=== PATIENT | male | born 1950 | race Caucasian/White ===

== ENCOUNTER → 2016-09-26 | Outpatient (CLI) | payer MEDICARE ==
[~2016-09-26] MED LIST: REGADENOSON 0.4 MG/5 ML SYRINGE ONE
== END | disposition home or self-care (01) ==
LOC: CFH 07:50
PROVIDERS: ATTEND Nurse Practitioner Family
DX: I47.2 Ventricular tachycardia (principal)
CPT/HCPCS: 78452; 93017; A9502; J2785

== ENCOUNTER 2016-10-04 09:26 | Day surgery (SDC) | payer MEDICARE ==
[2016-10-03 10:25] VITALS: BP 126/89
[2016-10-03 11:04] LABS: ASPARTATE AMINO TRANSFERASE 17 U/L (15-37); BLOOD UREA NITROGEN 21 mg/dL (7-18)
[~2016-10-04] VITALS: Ht 182.9 cm; Wt 88.6 kg
[~2016-10-04 09:26] MED LIST changes: +AMIO200T42 PO; +ASPI-496 PO; +ATOR20TA9 PO; +CARV12.52 PO; +CARV25TA12 PO; +IBUP200C8 PO; +NEO/3.5O LEFTEYE; -REGADENOSON 0.4 MG/5 ML SYRINGE ONE; +SPIR25TA3 PO; +TRIA60LO10 TD; +UMEC1DIS INH
[2016-10-04] MEDS ORDERED: SODIUM CHLORIDE 0.9% 1,000 ML IV SCH (09:42)
[2016-10-04] MEDS ORDERED: CEFAZOLIN PMX 1GM/50ML 50 ML IVPB ONE (10:00)
[2016-10-04] MEDS ORDERED: MAGN100T6 PO (10:38)
[2016-10-04] MEDS ORDERED: LIDOCAINE 2%, 20ML ONE (11:35)
[2016-10-04] MEDS ORDERED: FENTANYL PF 100 MCG/2ML ONE (11:50)
[2016-10-04] MEDS ORDERED: CEFAZOLIN 1,000 MG ONE ×2 (12:05→15:48)
[2016-10-04] MEDS ORDERED: FENTANYL PF 100 MCG/2ML IV PRN (13:00)
[2016-10-04] MEDS ORDERED: ALBUTEROL SULFATE 2.5 MG/3 ML NPPB PRN (13:00)
[2016-10-04] MEDS ORDERED: MEPERIDINE/PF 25MG/0.5ML IVPush PRN (13:00)
[2016-10-04] MEDS ORDERED: LABETALOL 5MG/ML, 20ML IV PRN (13:00)
[2016-10-04] MEDS ORDERED: MIDAZOLAM 1 MG/ML, 2ML IV PRN (13:00)
[2016-10-04] MEDS ORDERED: PROMETHAZINE 25 MG/ML, 1ML IV PRN (13:00)
[2016-10-04] MEDS ORDERED: HYDROmorphone 1 MG/ML, 1ML IV PRN (13:00)
[2016-10-04] MEDS ORDERED: hydrALAzine 20 MG/ML, 1ML IV PRN (13:00)
[2016-10-04] MEDS ORDERED: ACETAMINOPHEN 325 MG TABLET PO PRN (13:00)
[2016-10-04] MEDS ORDERED: OXYcodone 5 MG/5 ML ORAL.SOL UDC PO PRN (13:00)
[2016-10-04] MEDS ORDERED: ONDANSETRON 2MG/ML, 2ML IVPush PRN (13:00)
[2016-10-04] MEDS ORDERED: CEPH-368 PO (15:33)
[2016-10-04] MEDS ORDERED: PHENYLEPHRINE 10 MG/ML ONE (15:48)
[2016-10-04] MEDS ORDERED: EPHEDRINE 50 MG/ML, 1ML ONE (15:48)
[2016-10-04] MEDS ORDERED: PROPOFOL 10 MG/ML, 20ML ONE (15:48)
[2016-10-04] MEDS ORDERED: DEXAMETHASONE 4 MG/ML, 1ML ONE (15:48)
[2016-10-04] MEDS ORDERED: ONDANSETRON 2MG/ML, 2ML ONE (15:48)
== END 2016-10-04 16:00 ==
LOC: CACL 09:26 → EDSTATUS 11:00 → CACL 16:00
PROVIDERS: ATTEND Internal Medicine Cardiovascular Disease
DX: I25.5 Ischemic cardiomyopathy (principal); I47.2 Ventricular tachycardia; I10 Essential (primary) hypertension; E78.5 Hyperlipidemia, unspecified; E11.9 Type 2 diabetes mellitus without complications; J44.9 Chronic obstructive pulmonary disease, unspecified; Z95.0 Presence of cardiac pacemaker; Z45.010 Encounter for checking and testing of cardiac pacemaker pulse generator [battery]; Z95.810 Presence of automatic (implantable) cardiac defibrillator
CPT/HCPCS: 33264; 36415; 71020; 80053; 85025; 85610; 93005; C1882; J0690; J1100; J2370; J2405; J2704; J3010; J3490

== ENCOUNTER → 2017-10-05 | Outpatient (CLI) | payer MEDICARE ==
[~2017-10-05] MED LIST changes: +CEPH-368 PO; +MAGN100T6 PO
== END | disposition home or self-care (01) ==
LOC: CFH 08:00
PROVIDERS: ATTEND Internal Medicine Cardiovascular Disease
DX: Z01.810 Encounter for preprocedural cardiovascular examination (principal); I21.19 ST elevation (STEMI) myocardial infarction involving other coronary artery of inferior wall; I25.89 Other forms of chronic ischemic heart disease; I47.2 Ventricular tachycardia; I42.9 Cardiomyopathy, unspecified; Z95.810 Presence of automatic (implantable) cardiac defibrillator
CPT/HCPCS: 71046; 78452; 93017; A9502

== ENCOUNTER 2017-11-13 09:39 | Emergency (ER) | payer MEDICARE ==
[~2017-11-13] VITALS: Ht 175.3 cm; Wt 83.0 kg
[~2017-11-13 09:39] MED LIST changes: -SPIR25TA3 PO; +SPIR25TA5 PO
[2017-11-13] MEDS ORDERED: ASPIRIN 81 MG TABLET CHEW PO ONE (10:30)
[2017-11-13] MEDS ORDERED: SODIUM CHLORIDE FLUSH 10ML SYR IVF ONE (10:30)
[2017-11-13 10:31] LABS: BASOPHILS # (AUTO) 0.05 x10^3/uL (0-0.1); BASOPHILS % (AUTO) 1 % (0-1); EOSINOPHILS # (AUTO) 0.35 x10^3/uL (0-0.4); EOSINOPHILS % (AUTO) 5 % (1-7); LYMPHOCYTES # (AUTO) 1.05 x10^3/uL (1-3.4); LYMPHOCYTES % (AUTO) 14 % (22-44); MD NO; MEAN CORPUSCULAR HEMOGLOBIN 32.4 pg (27.5-34.5); MEAN CORPUSCULAR HGB CONC 33.9 g/dL (33.2-36.2); MEAN CORPUSCULAR VOLUME 95.7 fL (81-97); MEAN PLATELET VOLUME 7.8 fL (7.4-10.4); MONOCYTES # (AUTO) 0.64 x10^3/uL (0.2-0.8); MONOCYTES % (AUTO) 8 % (2-9); NEUTROPHILS # (AUTO) 5.52 x10^3/uL (1.8-6.8); NEUTROPHILS % (AUTO) 73 % (42-75); PLATELET COUNT 192 x10^3/uL (130-400); RED BLOOD COUNT 4.98 x10^6/uL (4.38-5.82); RED CELL DISTRIBUTION WIDTH 14.1 % (9.4-14.8)
[2017-11-13] MEDS ORDERED: ASPIRIN 81 MG TABLET CHEW ONE (10:34)
[2017-11-13 10:43] LABS: ALBUMIN 3.9 g/dL (3.4-5.0); ANION GAP 7 mmol/L (5-15); CALCIUM 8.6 mg/dL (8.5-10.1); CHLORIDE 108 mmol/L (98-107); CREATININE 1.53 mg/dL (0.7-1.3)
[2017-11-13 10:47] LABS: TROPONIN I < 0.015 ng/mL (0.000-0.045)
[2017-11-13] MEDS ORDERED: LISI-167 PO (10:57)
[2017-11-13] MEDS ORDERED: MEXI150C PO (10:57)
[2017-11-13 11:39] VITALS: BP 121/87
== END 2017-11-13 13:20 | disposition home or self-care (01) ==
LOC: ED 10:56
DX: I47.2 Ventricular tachycardia (principal); Z95.0 Presence of cardiac pacemaker
CPT/HCPCS: 36415; 71045; 80048; 82040; 83735; 84484; 85025; 93005; 99285

== ENCOUNTER 2019-08-16 08:33 | Emergency (ER) | payer MEDICARE ==
[~2019-08-16] VITALS: Ht 182.9 cm; Wt 88.0 kg
[~2019-08-16 08:33] MED LIST changes: +ATOR20TA37 PO; -ATOR20TA9 PO; +LISI-167 PO; +METO25TA35 PO; +MEXI150C PO
--- NOTE | 2019-08-16 09:00 | NUR ---
LAURIE KRISHNAMURTHY, PT WITH AICD, FIRED 20 TIMES YESTERDAY AND ONCE THIS AM. 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 PT CURRENTLY ASYMPTOMATIC NO CP, SOB REPORTED. PT TO CONT PULSE OX CARD MONITOR, BP. PIV INITIATED ERPROVIDER IN TO HEAVENLY PT
[2019-08-16 09:08] LABS: BASOPHILS # (AUTO) 0.05 x10^3/uL (0-0.1); BASOPHILS % (AUTO) 1 % (0-1); EOSINOPHILS # (AUTO) 0.59 x10^3/uL (0-0.4); EOSINOPHILS % (AUTO) 8 % (1-7); LYMPHOCYTES % (AUTO) 21 % (22-44); MD NO; MEAN CORPUSCULAR HEMOGLOBIN 31.9 pg (27.5-34.5); MEAN CORPUSCULAR HGB CONC 33.1 g/dL (33.2-36.2); MEAN CORPUSCULAR VOLUME 96.3 fL (81-97); MEAN PLATELET VOLUME 7.4 fL (7.4-10.4); MONOCYTES # (AUTO) 0.73 x10^3/uL (0.2-0.8); MONOCYTES % (AUTO) 9 % (2-9); NEUTROPHILS # (AUTO) 4.87 x10^3/uL (1.8-6.8); NEUTROPHILS % (AUTO) 61 % (42-75); PLATELET COUNT 223 x10^3/uL (130-400); RED BLOOD COUNT 5.34 x10^6/uL (4.38-5.82); RED CELL DISTRIBUTION WIDTH 14.7 % (9.4-14.8)
[2019-08-16 09:15] LABS: ANION GAP 11 mmol/L (5-15); CALCIUM 8.9 mg/dL (8.5-10.1); CHLORIDE 106 mmol/L (98-107)
--- NOTE | 2019-08-16 09:19 | NUR ---
NAME IS ALMAZ [phone]. SHE WOULD LIKE TO BE CALLED AND UPDATED ON POC WHEN ABLE
[2019-08-16 09:21] LABS: CREATININE 1.96 mg/dL (0.7-1.3); TROPONIN I 0.052 ng/mL (0.000-0.045)
[2019-08-16 10:22] VITALS: BP 126/89
== END 2019-08-16 11:19 | disposition home or self-care (01) ==
LOC: ED 09:10
DX: I49.3 Ventricular premature depolarization (principal); R79.89 Other specified abnormal findings of blood chemistry; I11.9 Hypertensive heart disease without heart failure; E78.5 Hyperlipidemia, unspecified
CPT/HCPCS: 36415; 71045; 80048; 83735; 84484; 85025; 93005; 99285

== ENCOUNTER 2020-05-11 13:11 | Emergency (ER) | payer MEDICARE ==
[~2020-05-11] VITALS: Ht 188 cm; Wt 72.0 kg
--- NOTE | 2020-05-11 13:14 | NUR ---
Pt in decon now. Per EMS VSS. Pt denies any symptoms at time of arrival.
--- NOTE | 2020-05-11 13:15 | NUR ---
Late entry summary note: Pt reports feeling dizzy prior to feeling his pacemaker shock him. Pt has a [employer] [place] pacer/defibrilator. He has a history of V-tach and possible SVT. Pt has had a pacemaker for 10 years. Pt has had this device placed 2 years ago. Last shock pt reports was in March.
--- NOTE | 2020-05-11 14:05 | NUR ---
BREAK RN: PACEMAKER INTEROGATION COMPLETED
[2020-05-11 14:16] LABS: ALBUMIN 3.6 g/dL (3.4-5.0); ANION GAP 5 mmol/L (5-15); CALCIUM 8.8 mg/dL (8.5-10.1); CHLORIDE 107 mmol/L (98-107); CREATININE 1.67 mg/dL (0.7-1.3)
[2020-05-11 15:02] VITALS: BP 103/70
[2020-05-11 15:04] LABS: MEAN CORPUSCULAR HEMOGLOBIN 32.4 pg (27.5-34.5); MEAN CORPUSCULAR HGB CONC 33.4 g/dL (33.2-36.2); MEAN PLATELET VOLUME 8.4 fL (7.4-10.4); PLATELET COUNT 194 x10^3/uL (130-400); RED BLOOD COUNT 5.59 x10^6/uL (4.38-5.82); RED CELL DISTRIBUTION WIDTH 14.7 % (9.4-14.8)
--- NOTE | 2020-05-11 15:06 | NUR ---
Pt sitting up right in bed, NADN.
[2020-05-11 15:08] LABS: MD YES
[2020-05-11 15:42] LABS: BAND#(MANUAL) 0.15 x10^3/uL; BANDS%(MANUAL) 2 % (0-7); BASOS#(MANUAL) 0.08 x10^3/uL (0-0.1); BASOS% (MANUAL) 1 % (0-1); EOS#(MANUAL) 0.39 x10^3/uL (0.0-0.4); EOS% (MANUAL) 5 % (1-7); LYMPH#(MANUAL) 0.77 x10^3/uL (1-3.4); LYMPHS% (MANUAL) 10 % (22-44); MONOS#(MANUAL) 0.85 x10^3/uL (0.3-2.7); MONOS% (MANUAL) 11 % (2-9); SEG#(MANUAL) 5.47 x10^3/uL (1.8-6.8); SEGS% (MANUAL) 71 % (42-75)
[2020-05-11 15:43] LABS: <PLATELET ESTIMATE> ADEQUATE; <PLT MORPHOLOGY> NORMAL PLT MORPH; <RBC MORPHOLOGY> NORMAL
== END 2020-05-11 15:56 | disposition home or self-care (01) ==
LOC: ED 15:30
DX: R55 Syncope and collapse (principal); I47.2 Ventricular tachycardia; R07.89 Other chest pain; Z95.0 Presence of cardiac pacemaker
CPT/HCPCS: 36415; 80048; 82040; 83735; 85025; 93005; 99283; 99284